=== PATIENT | female | born 1940 | race Caucasian/White ===

== ENCOUNTER → 2019-02-03 | Outpatient (CLI) | payer MEDICARE ==
[~2019-02-03] MED LIST: ASCO500; Colace100 MG PO; FERR325; HYDR1TAB94 PO; MECL12.5 PO; MULVITMIND; XARELTO10 MG PO
== END | disposition home or self-care (01) ==
LOC: PLD 07:21 → LAB SHORT 07:21
DX: L57.0 Actinic keratosis (principal)
CPT/HCPCS: 88173

== ENCOUNTER → 2019-02-09 | Outpatient (CLI) | payer MEDICARE | END | disposition home or self-care (01) | LOC: LAB SHORT 07:03 → PLD 07:03 | DX: C96.9 Malignant neoplasm of lymphoid, hematopoietic and related tissue, unspecified (principal) | CPT/HCPCS: 88173 ==

== ENCOUNTER 2019-03-16 19:48 | Emergency (ER) | payer MEDICARE ==
[~2019-03-16] VITALS: Ht 154.9 cm; Wt 61.2 kg
[2019-03-16 20:29] LABS: BASOPHILS ABSOLUTE AUTO 0.04 K/mm3 (0.00-0.23); BASOPHILS PERCENT AUTO 1 % (0-2); EOSINOPHILS ABSOLUTE AUTO 0.26 K/mm3 (0.00-0.68); EOSINOPHILS PERCENT AUTO 4 % (0-6); Hematocrit 29.9 % (33.0-51.0); Hemoglobin 9.9 g/dL (11.5-16.0); IMMATURE GRAN ABSOLUTE AUTO 0.01 K/mm3 (0.00-0.10); IMMATURE GRAN PERCENT AUTO 0 % (0-1); LYMPHOCYTES ABSOLUTE AUTO 1.49 K/mm3 (0.84-5.20); LYMPHOCYTES PERCENT AUTO 25 % (21-46); MONOCYTES ABSOLUTE AUTO 0.56 K/mm3 (0.16-1.47); MONOCYTES PERCENT AUTO 9 % (4-13); Mean Corpuscular HGB 32.4 pg (26.0-34.0); Mean Corpuscular HGB Conc 33.1 g/dL (31.5-36.5); Mean Corpuscular Volume 98 fL (80-100); Mean Platelet Volume 9.1 fL (9.1-12.4); NEUTROPHILS ABSOLUTE AUTO 3.71 K/mm3 (1.96-9.15); NEUTROPHILS PERCENT AUTO 61 % (41-73); Platelet Count 315 K/mm3 (150-400); RDW Coefficient Variation 12.8 % (11.7-14.2); RDW Standard Deviation 45.9 fL (35.1-46.3); Red Blood Cell Count 3.06 M/mm3 (3.80-5.20); White Blood Cell Count 6.07 K/mm3 (4.00-11.30)
[2019-03-16 20:42] LABS: Alanine Aminotransfer (ALT/SGP 14 U/L (12-78); Albumin, Blood 2.9 g/dL (3.4-5.0); Albumin/Globulin Ratio 0.9 (0.8-1.8); Alk Phos 68 U/L (50-136); Anion Gap 6 mmol/L (6-16); Aspartate Aminotrans (AST/SGOT 19 U/L (12-37); Bilirubin, Total 0.3 mg/dL (0.1-1.0); Blood Urea Nitrogen 10 mg/dL (8-24); CO2, Blood 26 mmol/L (21-32); Chloride, Blood 96 mmol/L (98-108); Creatinine, Blood 0.44 mg/dL (0.40-1.00); Globulin, Blood 3.4 g/dL (2.2-4.0); Glomerular Filtration Rate >60 (60-); Glucose, Blood 104 mg/dL (70-99); Potassium, Blood 4.1 mmol/L (3.5-5.5); Sodium, Blood 128 mmol/L (136-145); Total Protein, Blood 6.3 g/dL (6.4-8.2)
[2019-03-16 20:44] LABS: International Normalized Ratio 1.03; Prothrombin Time Results 10.9 Sec (9.7-11.5)
[2019-03-16] MEDS ORDERED: LISI20 PO (20:58)
== END 2019-03-17 00:02 | disposition short-term general hospital (02) ==
LOC: ER 19:48
PROVIDERS: Emergency Medicine
DX: G45.9 Transient cerebral ischemic attack, unspecified (principal); I10 Essential (primary) hypertension; E78.5 Hyperlipidemia, unspecified; Z79.899 Other long term (current) drug therapy
CPT/HCPCS: 70496; 80053; 85025; 85610; 85730; 93005; 93010; 96361; 96374; 99285-25; J2997; J7030; J7050; Q9967

== ENCOUNTER 2019-03-23 13:23 | Inpatient (IN) | payer MEDICARE ==
[~2019-03-23] VITALS: Ht 160 cm; Wt 47.1 kg
[~2019-03-23 13:23] MED LIST changes: +LISI20 PO
[2019-03-23] MEDS ORDERED: ATOR20 PO (13:34)
[2019-03-23 14:09] LABS: BASOPHILS ABSOLUTE AUTO 0.03 K/mm3 (0.00-0.23); BASOPHILS PERCENT AUTO 1 % (0-2); EOSINOPHILS ABSOLUTE AUTO 0.16 K/mm3 (0.00-0.68); EOSINOPHILS PERCENT AUTO 3 % (0-6); Hematocrit 31.7 % (33.0-51.0); Hemoglobin 11.1 g/dL (11.5-16.0); IMMATURE GRAN ABSOLUTE AUTO 0.03 K/mm3 (0.00-0.10); IMMATURE GRAN PERCENT AUTO 1 % (0-1); LYMPHOCYTES ABSOLUTE AUTO 1.08 K/mm3 (0.84-5.20); LYMPHOCYTES PERCENT AUTO 17 % (21-46); MONOCYTES ABSOLUTE AUTO 0.53 K/mm3 (0.16-1.47); MONOCYTES PERCENT AUTO 8 % (4-13); Mean Corpuscular HGB 32.2 pg (26.0-34.0); Mean Corpuscular Volume 92 fL (80-100); Mean Platelet Volume 8.9 fL (9.1-12.4); NEUTROPHILS PERCENT AUTO 71 % (41-73); Platelet Count 328 K/mm3 (150-400); RDW Coefficient Variation 12.1 % (11.7-14.2); RDW Standard Deviation 41.1 fL (35.1-46.3); Red Blood Cell Count 3.45 M/mm3 (3.80-5.20); White Blood Cell Count 6.33 K/mm3 (4.00-11.30)
[2019-03-23 14:41] LABS: Alanine Aminotransfer (ALT/SGP 22 U/L (12-78); Albumin, Blood 3.2 g/dL (3.4-5.0); Albumin/Globulin Ratio 0.9 (0.8-1.8); Alk Phos 81 U/L (50-136); Anion Gap 8 mmol/L (6-16); Aspartate Aminotrans (AST/SGOT 29 U/L (12-37); Bilirubin, Total 1.1 mg/dL (0.1-1.0); Blood Urea Nitrogen 10 mg/dL (8-24); Bun/Creatinine Ratio 25.3 (12.0-20.0); CO2, Blood 25 mmol/L (21-32); Calcium, Blood 8.3 mg/dL (8.5-10.1); Chloride, Blood 82 mmol/L (98-108); Globulin, Blood 3.7 g/dL (2.2-4.0); Glomerular Filtration Rate >60 (60-); Glucose, Blood 111 mg/dL (70-99); Potassium, Blood 3.2 mmol/L (3.5-5.5); Sodium, Blood 115 mmol/L (136-145); Total Protein, Blood 6.9 g/dL (6.4-8.2)
[2019-03-23] MEDS ORDERED: ASPI81CH PO (15:27)
[2019-03-23] MEDS ORDERED: ATOR40TA PO (15:27)
[2019-03-23] MEDS ORDERED: LIDO700A20 TOP (15:38)
[2019-03-23] MEDS ORDERED: MIRALAX17 GM (15:39)
[2019-03-23] MEDS ORDERED: Multivitamins1 EACH PO (15:39)
[2019-03-23] MEDS ORDERED: TOCO1000 PO (15:40)
[2019-03-23] MEDS ORDERED: ASCO500 PO (15:40)
[2019-03-23] MEDS ORDERED: ERGO400 PO (15:40)
--- NOTE | 2019-03-23 18:25 | NUR ---
SHIFT SUMMARY ASSUMED CARE OF PT AT APPROXIMATELY 1645. PT ALERT AND ORIENTED. VS STABLE. O2 SATS >90% ON RA. PT DENIES ANY PAIN. SOME REDNESS NOTED TO COCCYX. RIGHT SIDED WEAKNESS FROM RECENT STROKE. NS INFUSING PER ORDERS. PT DENIES ANY NAUSEA. WILL CONTINUE TO MONITOR AND REPORT TO ONCOMING RN. CALL LIGHT IN REACH.
[2019-03-23] MEDS ORDERED: FERROUS GLUCONATE PO (21:47)
[2019-03-23] MEDS ORDERED: SODCHL1 PO (21:50)
--- NOTE | 2019-03-24 02:09 | NUR ---
ASSUMED CARE OF PATIENT AT APPROXIMATELY 1900 FROM RASHARD Rogel RN. CHARISMA RN GIVING PATIENT MEDICATION; PATIENT REPORTS SHE TAKES MEDICATIONS CRUSHED IN APPLESAUCE AND DRINKS MOST FOODS THROUGH STRAWS. PATIENT REPORTS WHEN SHE GETS SODIUM PILL AT [facility] SHE THROWS UP AFTERWARDS. TOLERATED MED PASS WELL; NO S/S OF ASPIRATION NOTED. PATIENT DENIES PAIN; SOME NUMBNESS IN RIGHT SIDE; RECENT CVA AND D/C FROM [facility] TO [facility]; RIGHT SIDED WEAKNESS. PATIENT ALERT AND ORIENTED TO SELF, AND LOCATION. PATIENT UNABLE TO STATE MEDICATIONS; MED REC DONE WITH INFORMATION SENT OVER FROM [facility]. PATIENT DENIES TINGLING AND DIZZINESS. NAUSEA REPORTED DURING SHIFT CHANGE; BLOOD TESTER FOWL MEDICATED PER EMAR. PATIENT USES BEDPAN. IVF INFUSING PER ORDERS. CALLED KELLY NORIEGA AT APPROXIMATELY 2200 TO REPORT PATIENT REGULAR DIET AND REPORT OF SWALLOWING DIFFICULTIES; REQUESTED ST EVAL AND BP MEDICATION FOR SBP ABOVE 160; ORDERS RECIEVED FOR Q6 BP MEDICATION. PATIENT CURRENTLY SLEEPING IN BED; CALL LIGHT IN REACH; BED IN LOWEST POSISTION; BED ALARM ON; WILL CONTINUE TO MONITOR AND ASSESS UNTIL END OF SHIFT.
[2019-03-24 04:55] LABS: Anion Gap 7 mmol/L (6-16); Blood Urea Nitrogen 7 mg/dL (8-24); Bun/Creatinine Ratio 18.5 (12.0-20.0); CO2, Blood 24 mmol/L (21-32); Calcium, Blood 7.6 mg/dL (8.5-10.1); Chloride, Blood 90 mmol/L (98-108); Creatinine, Blood 0.38 mg/dL (0.40-1.00); Glomerular Filtration Rate >60 (60-); Glucose, Blood 106 mg/dL (70-99); Potassium, Blood 3.2 mmol/L (3.5-5.5); Sodium, Blood 121 mmol/L (136-145)
--- NOTE | 2019-03-24 06:25 | NUR ---
PATIENT SLEPT ABOUT NINE HOURS; TURNED FREQUENTLY; PATIENT HAD COMPLAINED OF CONSTIPATION SHORTLY AFTER SHIFT CHANGE; MEDICATED PER EMAR; BM THIS AM; USES BEDPAN. VSS. WILL CONTINUE TO MONITOR AND ASSESS UNTIL END OF SHIFT.
--- NOTE | 2019-03-24 19:00 | NUR ---
SHIFT SUMMARY- PT DENIES PAIN. DENIES N/V. DENIES SOB. RESP E/U ON RA. NSR AT 69 PER PCU DATA PROCESSING SYSTEMS CONSULTANT. SODIUM 121 AND POTASSIUM 3.2 TODAY. MEDS GIVEN PER EMAR. TURNS Q2H. PT TO TRANSFER TO ROOM 325 ON MEDICAL FLOOR WHEN ROOM IS CLEAN. NO OTHER SIGNIFICANT CHANGES THIS SHIFT.
--- NOTE | 2019-03-24 22:06 | NUR ---
REPORT TO [facility], FOR PT TRANSFER
--- NOTE | 2019-03-24 22:33 | NUR ---
PT TRANSFERRED TO ROOM 325 AT THIS TIME.
[2019-03-25 05:55] LABS: Anion Gap 8 mmol/L (6-16); Blood Urea Nitrogen 6 mg/dL (8-24); Bun/Creatinine Ratio 15.6 (12.0-20.0); CO2, Blood 23 mmol/L (21-32); Calcium, Blood 7.4 mg/dL (8.5-10.1); Chloride, Blood 94 mmol/L (98-108); Creatinine, Blood 0.38 mg/dL (0.40-1.00); Glomerular Filtration Rate >60 (60-); Glucose, Blood 92 mg/dL (70-99); Magnesium, Blood 1.6 mg/dL (1.6-2.4); Potassium, Blood 4.1 mmol/L (3.5-5.5); Sodium, Blood 125 mmol/L (136-145)
--- NOTE | 2019-03-25 06:19 | NUR ---
SHIFT SUMMARY PT TRANSFERRED FROM PCU TO ROOM 25 AT APPROX 2300. C/O PAIN IN NECK AND MEDICATED PER EMAR. A/O AND INCONT AT TIMES. SHE WAS ABLE TO SLEEP ON AND OFF T/O NIGHT. CALL LIGHT IN REACH.
--- NOTE | 2019-03-25 17:46 | NUR ---
SHIFT SUMMARY. A&OX4, R SIDED WEAKNESS R/T RECENT CVA, BEDREST, PT IS AWARE OF LIMIATIONS. SOME SLURRED SPEECH SECONDARY HX OF ORAL SURGERIES. PT REPORTS CHRONIC NECK PAIN THAT HAS BEEN MANAGED WELL WITH LIDOCAINE PATCH. NO SOB, N/V. CONTINUES WITH IV FLUIDS WITH KCL AND ORAL SODIUM SUPPLEMENTATION. AT BEDSIDE MOST OF SHIFT. NO NEW CHANGES OR CONCERNS.
[2019-03-26 05:23] LABS: Anion Gap 7 mmol/L (6-16); Blood Urea Nitrogen 11 mg/dL (8-24); Bun/Creatinine Ratio 28.3 (12.0-20.0); CO2, Blood 23 mmol/L (21-32); Calcium, Blood 7.6 mg/dL (8.5-10.1); Chloride, Blood 97 mmol/L (98-108); Creatinine, Blood 0.39 mg/dL (0.40-1.00); Glomerular Filtration Rate >60 (60-); Glucose, Blood 94 mg/dL (70-99); Magnesium, Blood 1.5 mg/dL (1.6-2.4); Potassium, Blood 4.9 mmol/L (3.5-5.5); Sodium, Blood 127 mmol/L (136-145)
--- NOTE | 2019-03-26 06:09 | NUR ---
SHIFT SUMMARY PT A/O. C/O PAIN IN NECK AND MEDICATED C TYLENOL. SHE WAS ABLE TO GET TO SLEEP AFTER THAT. INCONT OF URINE. REPOSITIONED C PILLOWS. CALL LIGHT IN REACH.
--- NOTE | 2019-03-26 16:49 | NUR ---
SHIFT SUMMARY. A&OX3, COGNITION APPEARS IMPROVED FROM YESTERDAY. BLOOD SODIUM TRENDING UP. PT DENIES PAIN, SOB, N/V.IV FLUIDS STOPPED. POOR APPETITE, ALTHOUGH PT PUTS GOOD EFFORT INTO EATING. NO NEW CHANGES OR CONCERNS.
[2019-03-27 06:05] LABS: Anion Gap 5 mmol/L (6-16); Blood Urea Nitrogen 15 mg/dL (8-24); Bun/Creatinine Ratio 38.2 (12.0-20.0); CO2, Blood 25 mmol/L (21-32); Chloride, Blood 95 mmol/L (98-108); Creatinine, Blood 0.39 mg/dL (0.40-1.00); Glomerular Filtration Rate >60 (60-); Glucose, Blood 104 mg/dL (70-99); Magnesium, Blood 1.7 mg/dL (1.6-2.4); Potassium, Blood 4.3 mmol/L (3.5-5.5); Sodium, Blood 125 mmol/L (136-145)
--- NOTE | 2019-03-27 06:05 | NUR ---
SHIFT SUMMARY A/O. NO C/O PAIN. INCONT OF URINE. SHE WAS ABLE TO SLEEP T/O NIGHT. CALL LIGHT IN REACH.
[2019-03-27] MEDS ORDERED: ACET325 PO (16:41)
[2019-03-27] MEDS ORDERED: IRON236 MG PO (16:42)
--- NOTE | 2019-03-27 17:30 | NUR ---
DISCHARGED TO [facility] AT 1710. REPORT CALLED TO SHANNA. RECEIVED A SCRIPT FOR HYDROCODONE JUST PRIOR TO DISCHARGE THAT NURSE AT [facility] REPORTS SHE GOT. IN ROOM WITH RIDE GOT HERE. 2 PERSON STAND PIVOT TRANSFER TO W/C. INCONTINENT OF URINE JUST PRIOR TO LEAVING. TO [facility] VIA W/C. DISCHARGE INFO FAXED TO [facility] PER THEIR REQUEST.
== END 2019-03-27 17:34 | DRG 641 ==
LOC: ER 13:23 → PCU 14:51 → MEDS 03-24 22:12 → ENPENDDIS 03-27 15:06 → MEDS 03-27 17:34
PROVIDERS: Emergency Medicine; ADMIT Hospitalist
DX: E87.1 Hypo-osmolality and hyponatremia (principal); I69.351 Hemiplegia and hemiparesis following cerebral infarction affecting right dominant side; Z85.819 Personal history of malignant neoplasm of unspecified site of lip, oral cavity, and pharynx; I10 Essential (primary) hypertension; E78.5 Hyperlipidemia, unspecified; E83.42 Hypomagnesemia; D64.9 Anemia, unspecified; Z79.82 Long term (current) use of aspirin
CPT/HCPCS: 36415; 80048; 80053; 82947; 83735; 85025; 93005; 93010; 96360; 96361; 97110; 97162; 97167; 97530; 99284-25; A9270-GY; J1650; J2405; J3480; J7030

== ENCOUNTER → 2019-04-07 | Outpatient (CLI) | payer MEDICARE ==
[~2019-04-07] MED LIST changes: +ACET325 PO; +ASCO500 PO; +ASPI81CH PO; +ATOR20 PO; +ATOR40TA PO; +ERGO400 PO; +FERROUS GLUCONATE PO; +IRON236 MG PO; +LIDO700A20 TOP; +MIRALAX17 GM; +Multivitamins1 EACH PO; +SODCHL1 PO; +TOCO1000 PO
[2019-04-07 12:15] LABS: Alanine Aminotransfer (ALT/SGP 18 U/L (12-78); Albumin, Blood 3.1 g/dL (3.4-5.0); Alk Phos 91 U/L (50-136); Anion Gap 9 mmol/L (6-16); Aspartate Aminotrans (AST/SGOT 19 U/L (12-37); Bilirubin, Total 0.4 mg/dL (0.1-1.0); Blood Urea Nitrogen 10 mg/dL (8-24); Bun/Creatinine Ratio 23.4 (12.0-20.0); CO2, Blood 25 mmol/L (21-32); Calcium, Blood 8.1 mg/dL (8.5-10.1); Chloride, Blood 90 mmol/L (98-108); Creatinine, Blood 0.43 mg/dL (0.40-1.00); Glomerular Filtration Rate >60 (60-); Glucose, Blood 121 mg/dL (70-99); Potassium, Blood 3.9 mmol/L (3.5-5.5); Sodium, Blood 124 mmol/L (136-145); Total Protein, Blood 6.1 g/dL (6.4-8.2)
== END | disposition home or self-care (01) ==
LOC: LAB 11:49 → LAB SHORT 11:49
PROVIDERS: Internal Medicine Hematology & Oncology
DX: E87.1 Hypo-osmolality and hyponatremia (principal)
CPT/HCPCS: 80053

== ENCOUNTER → 2019-04-28 | Outpatient (CLI) | payer MEDICARE ==
[2019-04-28 11:12] LABS: Alanine Aminotransfer (ALT/SGP 20 U/L (12-78); Albumin, Blood 3.1 g/dL (3.4-5.0); Alk Phos 82 U/L (50-136); Anion Gap 7 mmol/L (6-16); Aspartate Aminotrans (AST/SGOT 18 U/L (12-37); Bilirubin, Total 0.6 mg/dL (0.1-1.0); Blood Urea Nitrogen 12 mg/dL (8-24); Bun/Creatinine Ratio 24.8 (12.0-20.0); CO2, Blood 28 mmol/L (21-32); Calcium, Blood 8.5 mg/dL (8.5-10.1); Chloride, Blood 95 mmol/L (98-108); Creatinine, Blood 0.48 mg/dL (0.40-1.00); Glomerular Filtration Rate >60 (60-); Glucose, Blood 98 mg/dL (70-99); Potassium, Blood 3.6 mmol/L (3.5-5.5); Sodium, Blood 130 mmol/L (136-145); Total Protein, Blood 6.1 g/dL (6.4-8.2)
== END | disposition home or self-care (01) ==
LOC: LAB SHORT 10:48 → LAB 10:48
PROVIDERS: Internal Medicine Hematology & Oncology
DX: C11.2 Malignant neoplasm of lateral wall of nasopharynx (principal)
CPT/HCPCS: 80053

== ENCOUNTER → 2019-06-08 | Outpatient (CLI) | payer MEDICARE ==
[2019-06-08 10:41] LABS: BASOPHILS ABSOLUTE AUTO 0.02 K/mm3 (0.00-0.23); BASOPHILS PERCENT AUTO 1 % (0-2); EOSINOPHILS ABSOLUTE AUTO 0.17 K/mm3 (0.00-0.68); EOSINOPHILS PERCENT AUTO 4 % (0-6); Hematocrit 29.3 % (33.0-51.0); IMMATURE GRAN ABSOLUTE AUTO 0.01 K/mm3 (0.00-0.10); IMMATURE GRAN PERCENT AUTO 0 % (0-1); LYMPHOCYTES ABSOLUTE AUTO 1.06 K/mm3 (0.84-5.20); LYMPHOCYTES PERCENT AUTO 25 % (21-46); MONOCYTES ABSOLUTE AUTO 0.34 K/mm3 (0.16-1.47); MONOCYTES PERCENT AUTO 8 % (4-13); Mean Corpuscular HGB 31.9 pg (26.0-34.0); Mean Corpuscular HGB Conc 34.1 g/dL (31.5-36.5); Mean Corpuscular Volume 94 fL (80-100); Mean Platelet Volume 8.9 fL (9.1-12.4); NEUTROPHILS ABSOLUTE AUTO 2.65 K/mm3 (1.96-9.15); NEUTROPHILS PERCENT AUTO 62 % (41-73); Platelet Count 296 K/mm3 (150-400); RDW Coefficient Variation 13.5 % (11.7-14.2); RDW Standard Deviation 46.2 fL (35.1-46.3); Red Blood Cell Count 3.13 M/mm3 (3.80-5.20); White Blood Cell Count 4.25 K/mm3 (4.00-11.30)
== END | disposition home or self-care (01) ==
LOC: LAB 10:31 → LAB SHORT 10:31
PROVIDERS: Internal Medicine Hematology & Oncology
DX: C11.2 Malignant neoplasm of lateral wall of nasopharynx (principal); Z85.810 Personal history of malignant neoplasm of tongue
CPT/HCPCS: 85025

== ENCOUNTER 2019-06-26 09:12 | Emergency (ER) | payer MEDICARE ==
[~2019-06-26] VITALS: Ht 160 cm; Wt 52.2 kg
[2019-06-26 10:54] LABS: BASOPHILS ABSOLUTE AUTO 0.05 K/mm3 (0.00-0.23); BASOPHILS PERCENT AUTO 1 % (0-2); EOSINOPHILS ABSOLUTE AUTO 0.22 K/mm3 (0.00-0.68); EOSINOPHILS PERCENT AUTO 4 % (0-6); Hematocrit 32.4 % (33.0-51.0); Hemoglobin 11.2 g/dL (11.5-16.0); IMMATURE GRAN ABSOLUTE AUTO 0.01 K/mm3 (0.00-0.10); IMMATURE GRAN PERCENT AUTO 0 % (0-1); LYMPHOCYTES ABSOLUTE AUTO 1.32 K/mm3 (0.84-5.20); LYMPHOCYTES PERCENT AUTO 25 % (21-46); MONOCYTES ABSOLUTE AUTO 0.53 K/mm3 (0.16-1.47); MONOCYTES PERCENT AUTO 10 % (4-13); Mean Corpuscular HGB 31.5 pg (26.0-34.0); Mean Corpuscular HGB Conc 34.6 g/dL (31.5-36.5); Mean Corpuscular Volume 91 fL (80-100); Mean Platelet Volume 8.9 fL (9.1-12.4); NEUTROPHILS ABSOLUTE AUTO 3.25 K/mm3 (1.96-9.15); NEUTROPHILS PERCENT AUTO 60 % (41-73); Platelet Count 268 K/mm3 (150-400); RDW Coefficient Variation 13.3 % (11.7-14.2); RDW Standard Deviation 44.8 fL (35.1-46.3); Red Blood Cell Count 3.55 M/mm3 (3.80-5.20); White Blood Cell Count 5.38 K/mm3 (4.00-11.30)
[2019-06-26 11:05] LABS: Alanine Aminotransfer (ALT/SGP 14 U/L (12-78); Albumin, Blood 3.4 g/dL (3.4-5.0); Alk Phos 78 U/L (50-136); Anion Gap 7 mmol/L (6-16); Aspartate Aminotrans (AST/SGOT 19 U/L (12-37); Bilirubin, Total 0.3 mg/dL (0.1-1.0); Blood Urea Nitrogen 8 mg/dL (8-24); Bun/Creatinine Ratio 14.4 (12.0-20.0); CO2, Blood 27 mmol/L (21-32); Calcium, Blood 8.3 mg/dL (8.5-10.1); Chloride, Blood 89 mmol/L (98-108); Creatinine, Blood 0.56 mg/dL (0.40-1.00); Globulin, Blood 3.4 g/dL (2.2-4.0); Glomerular Filtration Rate >60 (60-); Glucose, Blood 110 mg/dL (70-99); Potassium, Blood 3.5 mmol/L (3.5-5.5); Sodium, Blood 123 mmol/L (136-145); Total Protein, Blood 6.8 g/dL (6.4-8.2)
== END 2019-06-26 12:01 | disposition home or self-care (01) ==
LOC: ER 09:12
PROVIDERS: Emergency Medicine
DX: E87.1 Hypo-osmolality and hyponatremia (principal); Z88.0 Allergy status to penicillin; Z88.5 Allergy status to narcotic agent; Z88.8 Allergy status to other drugs, medicaments and biological substances; Z79.899 Other long term (current) drug therapy; Z79.82 Long term (current) use of aspirin; I10 Essential (primary) hypertension; Z86.73 Personal history of transient ischemic attack (TIA), and cerebral infarction without residual deficits; E78.5 Hyperlipidemia, unspecified; Z85.818 Personal history of malignant neoplasm of other sites of lip, oral cavity, and pharynx
CPT/HCPCS: 36415; 80053; 85025; 99283

== ENCOUNTER → 2019-08-09 | Outpatient (CLI) | payer MEDICARE ==
[2019-08-09 15:44] LABS: Alanine Aminotransfer (ALT/SGP 16 U/L (12-78); Albumin, Blood 3.4 g/dL (3.4-5.0); Albumin/Globulin Ratio 1.1 (0.8-1.8); Alk Phos 79 U/L (50-136); Anion Gap 7 mmol/L (6-16); Aspartate Aminotrans (AST/SGOT 21 U/L (12-37); Bilirubin, Total 0.4 mg/dL (0.1-1.0); Blood Urea Nitrogen 7 mg/dL (8-24); Bun/Creatinine Ratio 15.3 (12.0-20.0); CO2, Blood 27 mmol/L (21-32); Calcium, Blood 8.4 mg/dL (8.5-10.1); Chloride, Blood 93 mmol/L (98-108); Creatinine, Blood 0.46 mg/dL (0.40-1.00); Glomerular Filtration Rate >60 (60-); Glucose, Blood 81 mg/dL (70-99); Sodium, Blood 127 mmol/L (136-145); Total Protein, Blood 6.4 g/dL (6.4-8.2)
== END | disposition home or self-care (01) ==
LOC: LAB 12:20 → LAB SHORT 12:20
PROVIDERS: Internal Medicine Hematology & Oncology
DX: C11.2 Malignant neoplasm of lateral wall of nasopharynx (principal)
CPT/HCPCS: 80053

== ENCOUNTER → 2019-10-26 | Outpatient (CLI) | payer MEDICARE ==
[~2019-10-26] MED LIST changes: -ASPI81CH PO; +AZIT500 PO; +Aspirin EC81 MG PO; +BISA5EC PO; +COLACE100 MG PO; +Fergon240 M1 PO; +IMMUNOTHERAPY; -IRON236 MG PO; -MIRALAX17 GM; +MIRALAX17 GM PO; +MULTI VITAMIN1 EACH PO; +MUPIROCIN15 GM TOP; +Macrodantin100 MG PO; -Multivitamins1 EACH PO; +TOBRADEX ST EYE5 ML BOTHEYES; +Zantac150 MG PO
[2019-10-26 15:23] LABS: Alanine Aminotransfer (ALT/SGP 27 U/L (12-78); Albumin, Blood 3.6 g/dL (3.4-5.0); Albumin/Globulin Ratio 0.9 (0.8-1.8); Alk Phos 350 U/L (50-136); Anion Gap 10 mmol/L (6-16); Aspartate Aminotrans (AST/SGOT 28 U/L (12-37); Bilirubin, Direct 0.4 mg/dL (0.0-0.3); Bilirubin, Indirect 0.4 mg/dL (0.1-0.7); Bilirubin, Total 0.8 mg/dL (0.1-1.0); Blood Urea Nitrogen 6 mg/dL (8-24); Bun/Creatinine Ratio 13.5 (12.0-20.0); CO2, Blood 26 mmol/L (21-32); Calcium, Blood 8.6 mg/dL (8.5-10.1); Chloride, Blood 93 mmol/L (98-108); Creatinine, Blood 0.44 mg/dL (0.40-1.00); Globulin, Blood 3.9 g/dL (2.2-4.0); Glomerular Filtration Rate >60 (60-); Glucose, Blood 80 mg/dL (70-99); Potassium, Blood 3.7 mmol/L (3.5-5.5); Sodium, Blood 129 mmol/L (136-145); Total Protein, Blood 7.5 g/dL (6.4-8.2)
== END | disposition home or self-care (01) ==
LOC: LAB SHORT 13:05 → LAB 13:05
PROVIDERS: Internal Medicine Hematology & Oncology
DX: C11.2 Malignant neoplasm of lateral wall of nasopharynx (principal)
CPT/HCPCS: 80053; 82248

== ENCOUNTER → 2019-11-23 | Outpatient (CLI) | payer MEDICARE | END | disposition home or self-care (01) | LOC: LAB SHORT 17:14 → LAB 17:14 | DX: R30.0 Dysuria (principal); R30.9 Painful micturition, unspecified | CPT/HCPCS: 87077; 87086; 87186 ==

== ENCOUNTER 2019-11-28 09:45 | Day surgery (SDC) | payer MEDICARE ==
[~2019-11-28 09:45] MED LIST changes: -AZIT500 PO; -BISA5EC PO; -COLACE100 MG PO; -MUPIROCIN15 GM TOP; -Macrodantin100 MG PO; -TOBRADEX ST EYE5 ML BOTHEYES
--- NOTE | 2019-11-28 10:25 | NUR ---
History, Chart, Medications and Allergies reviewed before start of procedure. Patient confirms NPO status and agrees with scheduled surgery. Patient States Post-Procedure ride home has been arranged with her , who is at bedside.
--- NOTE | 2019-11-28 10:29 | NUR ---
DR MISTRY CANCELLED SURGERY DUE TO SAFETY CONCERNS.
--- NOTE | 2019-11-28 10:49 | NUR ---
PATIENT TRANSPORTED OUT OF [facility] VIA PERSONAL W/C ACCOMPANIED BY HER . DR MISTRY'S OFFICE CONTACT INFORMATION GIVEN TO PATIENT FOR FOLLOW UP AFTER TODAY'S CANCELLATION. PATIENT AGREES TO CALL DR MISTRY'S OFFICE IF SHE DOES NOT HEAR FROM HIM BY THE END OF THE DAY.
[2019-12-12] MEDS ORDERED: MUPIROCIN15 GM TOP (07:28)
[2019-12-12] MEDS ORDERED: Macrodantin100 MG PO (07:30)
[2019-12-12] MEDS ORDERED: TOBRADEX ST EYE5 ML BOTHEYES (07:31)
[2019-12-12] MEDS ORDERED: BISA5EC PO (07:32)
[2019-12-12] MEDS ORDERED: COLACE100 MG PO (07:33)
== END 2019-11-28 22:43 | disposition home or self-care (01) ==
LOC: ORSCMMR 09:45 → ORD 11:00 → ORSCMMR 11:00
DX: C11.9 Malignant neoplasm of nasopharynx, unspecified (principal); Z53.9 Procedure and treatment not carried out, unspecified reason
CPT/HCPCS: J7120

== ENCOUNTER 2019-12-12 09:43 | Day surgery (SDC) | payer MEDICARE ==
[~2019-12-12] VITALS: Ht 162.6 cm; Wt 47.9 kg
[~2019-12-12 09:43] MED LIST changes: +BISA5EC PO; +COLACE100 MG PO; +MUPIROCIN15 GM TOP; +Macrodantin100 MG PO; +TOBRADEX ST EYE5 ML BOTHEYES
[2019-12-12] MEDS ORDERED: AZIT500 PO (10:24)
--- NOTE | 2019-12-12 12:55 | NUR ---
1255 Vanco IV drip started.
--- NOTE | 2019-12-12 16:13 | NUR ---
PT ASSISTED TO DRESS. PT AOX4. DENIES ANY PAIN. NEW IMPLANTED MEDIPORT SITE IS COVERED WITH STERI STRIPS AND TEGADERM. LITTLE OOZING NOTED. IV DCD WITH CATH INTACT. PT AND SPOUSE STATES UNDERSTANDING OF WOUNDS SITE CARE INSTRUCTIONS AND DISCHARGE INSTRUCTIONS. VSS. BOTH PT AND SPOUSE DENY ANY QUESTIONS OR CONCERNS. PT DCD IN OWN WHEELCHAIR WITH
== END 2019-12-12 16:00 | disposition home or self-care (01) ==
LOC: MHTC 09:43
DX: C11.2 Malignant neoplasm of lateral wall of nasopharynx (principal); E78.5 Hyperlipidemia, unspecified; Z88.0 Allergy status to penicillin; Z88.5 Allergy status to narcotic agent; Z88.8 Allergy status to other drugs, medicaments and biological substances; Z79.899 Other long term (current) drug therapy
CPT/HCPCS: 36561; 76937; 99152; 99153; C1769; C1788; J1642; J1644; J2250; J3010; J3370

== ENCOUNTER → 2019-12-22 | Outpatient (CLI) | payer MEDICARE ==
[~2019-12-22] MED LIST changes: +ASPI81CH PO; +ATOR10 PO; +AZIT500 PO; +DULCOLAX STOOL100 MG PO; +METO25ER PO
== END | disposition home or self-care (01) ==
LOC: LAB 10:55 → LAB SHORT 10:55
DX: T14.8XXA Other injury of unspecified body region, initial encounter (principal); R22.1 Localized swelling, mass and lump, neck
CPT/HCPCS: 87070; 87205

== ENCOUNTER → 2020-01-17 | Outpatient (CLI) | payer MEDICARE ==
[2020-01-17 11:13] LABS: Alanine Aminotransfer (ALT/SGP 13 U/L (12-78); Albumin, Blood 2.5 g/dL (3.4-5.0); Albumin/Globulin Ratio 0.8 (0.8-1.8); Alk Phos 120 U/L (50-136); Anion Gap 3 mmol/L (6-16); Aspartate Aminotrans (AST/SGOT 17 U/L (12-37); Bilirubin, Total 0.5 mg/dL (0.1-1.0); Blood Urea Nitrogen 7 mg/dL (8-24); Bun/Creatinine Ratio 17.9 (12.0-20.0); CO2, Blood 31 mmol/L (21-32); Calcium, Blood 7.4 mg/dL (8.5-10.1); Chloride, Blood 103 mmol/L (98-108); Creatinine, Blood 0.39 mg/dL (0.40-1.00); Glomerular Filtration Rate >60 (60-); Glucose, Blood 73 mg/dL (70-99); Potassium, Blood 3.3 mmol/L (3.5-5.5); Sodium, Blood 137 mmol/L (136-145); Total Protein, Blood 5.5 g/dL (6.4-8.2)
== END ==
LOC: LAB SHORT 10:49 → LAB 10:49
PROVIDERS: Internal Medicine Hematology & Oncology
DX: E86.9 Volume depletion, unspecified (principal); C11.2 Malignant neoplasm of lateral wall of nasopharynx
CPT/HCPCS: 80053

== ENCOUNTER 2020-02-22 17:50 | Observation (INO) | payer MEDICARE, OTHER ==
[~2020-02-22] VITALS: Ht 162.6 cm; Wt 47.8 kg
[~2020-02-22 17:50] MED LIST changes: -ASPI81CH PO; -ATOR10 PO; -DULCOLAX STOOL100 MG PO; -METO25ER PO
[2020-02-22 18:34] LABS: BASOPHILS ABSOLUTE AUTO 0.03 K/mm3 (0.00-0.23); BASOPHILS PERCENT AUTO 0 % (0-2); EOSINOPHILS ABSOLUTE AUTO 0.01 K/mm3 (0.00-0.68); EOSINOPHILS PERCENT AUTO 0 % (0-6); Hematocrit 34.3 % (33.0-51.0); Hemoglobin 11.6 g/dL (11.5-16.0); IMMATURE GRAN ABSOLUTE AUTO 0.02 K/mm3 (0.00-0.10); IMMATURE GRAN PERCENT AUTO 0 % (0-1); LYMPHOCYTES ABSOLUTE AUTO 0.62 K/mm3 (0.84-5.20); LYMPHOCYTES PERCENT AUTO 8 % (21-46); MONOCYTES ABSOLUTE AUTO 0.34 K/mm3 (0.16-1.47); MONOCYTES PERCENT AUTO 4 % (4-13); Mean Corpuscular HGB 32.4 pg (26.0-34.0); Mean Corpuscular HGB Conc 33.8 g/dL (31.5-36.5); Mean Corpuscular Volume 96 fL (80-100); Mean Platelet Volume 9.4 fL (9.1-12.4); NEUTROPHILS PERCENT AUTO 87 % (41-73); Platelet Count 202 K/mm3 (150-400); RDW Coefficient Variation 13.3 % (11.7-14.2); RDW Standard Deviation 47.5 fL (35.1-46.3); Red Blood Cell Count 3.58 M/mm3 (3.80-5.20); White Blood Cell Count 7.82 K/mm3 (4.00-11.30)
[2020-02-22 19:11] LABS: Source, Urine Clean Catch
[2020-02-22 19:13] LABS: Bilirubin, Urine Neg (Neg); Blood, Urine 1+ (Neg); Glucose Qualitative, Urine Neg (Neg); Ketones, Urine 1+ (Neg); Leukocyte Esterase, Urine Neg (Neg); Nitrite, Urine Neg (Neg); Protein, Urine Neg (Neg); Urobilinogen, Urine NORM (Normal)
[2020-02-22 19:22] LABS: Appearance, Urine Clear (Clear); Color, Urine Yellow (P-Yellow)
[2020-02-22 19:28] LABS: Alanine Aminotransfer (ALT/SGP 25 U/L (12-78); Albumin, Blood 2.7 g/dL (3.4-5.0); Albumin/Globulin Ratio 0.8 (0.8-1.8); Alk Phos 89 U/L (50-136); Anion Gap 7 mmol/L (6-16); Aspartate Aminotrans (AST/SGOT 66 U/L (12-37); Bilirubin, Total 0.8 mg/dL (0.1-1.0); Blood Urea Nitrogen 6 mg/dL (8-24); Bun/Creatinine Ratio 19.4 (12.0-20.0); CO2, Blood 25 mmol/L (21-32); Calcium, Blood 7.2 mg/dL (8.5-10.1); Chloride, Blood 104 mmol/L (98-108); Creatinine, Blood 0.31 mg/dL (0.40-1.00); Globulin, Blood 3.5 g/dL (2.2-4.0); Glomerular Filtration Rate >60 (60-); Glucose, Blood 108 mg/dL (70-99); Sodium, Blood 136 mmol/L (136-145); Total Protein, Blood 6.2 g/dL (6.4-8.2)
[2020-02-22 19:34] LABS: Amorphous Mod (0-Heavy); Bacteria Few /hpf; Red Blood Cells, Urine 0-2 /hpf (0-2); Squamous Epithelial Cells Few /hpf (Few); White Blood Cells, Urine 0-2 /hpf (0-5)
[2020-02-22] MEDS ORDERED: Aspir 8181 MG PO (20:14)
[2020-02-22] MEDS ORDERED: ATOR20 PO (20:15)
[2020-02-22] MEDS ORDERED: METO25ER PO (20:16)
[2020-02-22] MEDS ORDERED: DOCU LIQUI50 MG/5 ML PO (20:16)
[2020-02-22 20:18] LABS: International Normalized Ratio 2.28; Prothrombin Time Results 23.3 Sec (9.7-11.5)
[2020-02-22 22:24] LABS: Adenovirus Not Detected (NOT DETECT); Bordetella pertussis Not Detected (NOT DETECT); Chlamydophila pneumoniae Not Detected (NOT DETECT); Coronavirus 229E Not Detected (NOT DETECT); Coronavirus HKU1 Not Detected (NOT DETECT); Coronavirus NL63 Not Detected (NOT DETECT); Coronavirus OC43 Not Detected (NOT DETECT); Human Metapneumovirus Not Detected (NOT DETECT); Human Rhinovirus/Enterovirus Not Detected (NOT DETECT); Influenza A/2009-H1 Not Detected (NOT DETECT); Influenza A/H1 Not Detected (NOT DETECT); Influenza A/H3 Not Detected (NOT DETECT); Influenza B Not Detected (NOT DETECT); Mycoplasma pneumoniae Not Detected (NOT DETECT); Parainfluenza Virus 1 Not Detected (NOT DETECT); Parainfluenza Virus 2 Not Detected (NOT DETECT); Parainfluenza Virus 3 Not Detected (NOT DETECT); Parainfluenza Virus 4 Not Detected (NOT DETECT); Respiratory Syncytial Virus Not Detected (NOT DETECT)
[2020-02-23 02:23] LABS: Hematocrit 33.8 % (33.0-51.0); Hemoglobin 11.3 g/dL (11.5-16.0); Mean Corpuscular HGB 32.2 pg (26.0-34.0); Mean Corpuscular HGB Conc 33.4 g/dL (31.5-36.5); Mean Corpuscular Volume 96 fL (80-100); Mean Platelet Volume 8.9 fL (9.1-12.4); Platelet Count 196 K/mm3 (150-400); RDW Coefficient Variation 13.3 % (11.7-14.2); RDW Standard Deviation 47.8 fL (35.1-46.3); Red Blood Cell Count 3.51 M/mm3 (3.80-5.20); White Blood Cell Count 5.57 K/mm3 (4.00-11.30)
[2020-02-23 02:38] LABS: International Normalized Ratio 1.28
[2020-02-23 02:41] LABS: Prothrombin Time Results 13.5 Sec (9.7-11.5)
[2020-02-23 02:46] LABS: Alanine Aminotransfer (ALT/SGP 33 U/L (12-78); Albumin, Blood 2.6 g/dL (3.4-5.0); Albumin/Globulin Ratio 0.7 (0.8-1.8); Alk Phos 97 U/L (50-136); Anion Gap 4 mmol/L (6-16); Aspartate Aminotrans (AST/SGOT 79 U/L (12-37); Bilirubin, Total 0.6 mg/dL (0.1-1.0); Blood Urea Nitrogen 9 mg/dL (8-24); CO2, Blood 28 mmol/L (21-32); CPK Creatine Kinase 116 U/L (26-193); Calcium, Blood 7.7 mg/dL (8.5-10.1); Chloride, Blood 103 mmol/L (98-108); Globulin, Blood 3.5 g/dL (2.2-4.0); Glomerular Filtration Rate >60 (60-); Glucose, Blood 101 mg/dL (70-99); Potassium, Blood 4.7 mmol/L (3.5-5.5); Sodium, Blood 135 mmol/L (136-145); Total Protein, Blood 6.1 g/dL (6.4-8.2)
--- NOTE | 2020-02-23 05:44 | NUR ---
SHIFT SUMMARY PT HAS BEEN RESTING QUIETLY SINCE ADMISSION TO THE FLOOR WITH NO PROBLEMS. SHE IS A&O X4, ON RA, VSS, FEVER NOTED UPON ADMISSION. PT DENIES SOB/CP. PT IS ON ISOLATION FOR R/O COVID 19, SAMPLES WERE TAKEN IN THE ER SENT. RESP PANEL IS NEG. PT HAS BEEN NPO OTHER THAN PILLS THAT WERE CRUSHED AND GIVEN W/PUDDING, PT STATES SHE HAS A HARD TIME SWALLOWING THEM DUE TO HER CANCER. NS INFUSING @ 75 ML/HR. CALL LIGHT IN REACH, RESP UNLABORED, WCTM & REPORT TO DAY RN.
--- NOTE | 2020-02-23 09:42 | NUR ---
PT LAYING IN BED AWAKE, A/OX3, BUT WAS REPORTED THAT SHE IS NOT UNDERSTANDING HER CODE STATUS, AND MAY NEED SOME HELP FROM HER SPOUCE REGARDING THAT, AND LUNGS ARE CLEAR A BIT DIM IN BASES, RESP EVEN AND UNLABORED, SHE IS CURRENTLY ON R/A, NO COUGH NOTED, HRR, TELE IN PLACE RUNNING SR PER MONITOR, SEE STRIP, NO EDEMA NOTED, ppp+1, CAP REFILL<3SEC, VS STABLE, AFEBRILE, IV SITE IS CLEAR AND PATENT, BTX4, ABD FLAT SOFT NONTENDER, INCONT OF URINE, ATTENDS IN PLACE, SKIN VERY DRY, BUT INTACT, MAEW, WEAK AND FRAIL, TOVA, CALL LIGHT IN REACH.
[2020-02-23 11:20] LABS: Troponin I 6.36 ng/mL (0.000-0.040)
[2020-02-23 11:39] LABS: Creatine Kinase MB Index 10.3 (0.0-4.0)
--- NOTE | 2020-02-23 13:00 | NUR ---
PT UP TO CHAIR WITH PT. SHE IS DOING WELL, LIKES TO VISIT WHEN NURSE IN ROOM. NO COMPLAINTS, DENIES ANY CHEST PAIN. CALL LIGHT IN REACH.
--- NOTE | 2020-02-23 14:20 | NUR ---
[facility] Care initial contact: CORRECT ph # for , CHANCE [phone] Pt is in enhanced respiratory isolation for ruling out of covid19. Pt's RN, and report pt is confused at this time. She did not remember coming to the hospital by ambulance yesterday. Case conferenced with pt's RN prior to my call to and with after my long conversation with pt's . We received a palliative care consult order for advanced care planning and s/s management. Pt is currently experiencing an evolving SD. Due to pt's stage IV recurrent nasopharangeal cancer, malnutrition, frail/deconditioned status, conservative treatment for SD agreed upon. Pt and had been discussing hospice prior to this hospital stay after oncologist did not recommend further tx of cancer. Pt saw her new PCP, Dr Blandon once prior to admission and he had ordered HH. Code status was addressed with . requests that we continue to treat pt's s/s and SD with medications but he does not want his to receive resuscitation efforts of any kind. POLST was completed per his instructions with DNR and limited interventions noted. Chance wants his to return home with hospice services when she is medically ready for d/c. He has been doing a one person transfer from bed or chair to w/c and toilet and states he can manage her care if she is able to do that on d/c. PT evaluated and feels pt is at baseline with mobility/transfers. Discussed possiblity that pt may become too weak for transfers and may be bedbound in the near future. Discussed HH/H support available and the potential for hiring support caregivers so could obtain respite/rest, sleep, run necessary errands. reports he has resources to hire help if he can find cgs who are willing to come to the home. Inst that care managers and hospice [employer]DER[employer] would assist in obtaining caregivers or cg agency to hire. states his has been in fierce denial re: her cancer/illness, ("she's a fighter"), up until recently. After her appointment with Dr Simmons and some time processing she had begun verbalizing knowledge that her "days were numbered". Case conferenced with , RN, CM and engineering production liaison after my conversation with . VO for DNR status per POLST obtained and entered. POLST left at room for Dr zee.
--- NOTE | 2020-02-23 15:35 | NUR ---
PT BACK TO BED, NO ACUTE CHANGE. HER CODE STATUS WAS CHANGED TO DNR. CALL LIGHT IN REACH.
--- NOTE | 2020-02-23 18:07 | NUR ---
PT SPEAKING ON THE PHONE PERIODICALLY, NO COMPLAINTS OR ACUTE CHANGES, CALL LIGHT IN REACH.
--- NOTE | 2020-02-23 19:30 | NUR ---
ASSUMED CARE APPROXIMATELY 1900; PT A&O; FLAT AFFECT; ANSWERS APPROPRIATELY; STATES SHE IS ANXIOUS TO BE DISCHARGED; EDUCATED ON USE OF CALL LIGHT; VSS; DENIES CHEST PAIN; O2 SATS >93 ON RA; TAKES PO MEDS CRUSHED IN PUDDING; STATES DUE TO CANCER IT IS DIFFICULT TO SWALLOW MEDS, BUT NO PROBLEMS NOTED W/ FOOD; NO SIGNS OF DISTRESS; CALL LIGHT IN REACH; BED IN LOWEST POSITION; WILL CONTINUE TO MONITOR CLOSELY.
[2020-02-24 04:22] LABS: BASOPHILS ABSOLUTE AUTO 0.03 K/mm3 (0.00-0.23); BASOPHILS PERCENT AUTO 1 % (0-2); EOSINOPHILS ABSOLUTE AUTO 0.14 K/mm3 (0.00-0.68); EOSINOPHILS PERCENT AUTO 4 % (0-6); Hematocrit 35.3 % (33.0-51.0); Hemoglobin 11.6 g/dL (11.5-16.0); IMMATURE GRAN ABSOLUTE AUTO 0.01 K/mm3 (0.00-0.10); IMMATURE GRAN PERCENT AUTO 0 % (0-1); LYMPHOCYTES ABSOLUTE AUTO 0.99 K/mm3 (0.84-5.20); LYMPHOCYTES PERCENT AUTO 28 % (21-46); MONOCYTES ABSOLUTE AUTO 0.35 K/mm3 (0.16-1.47); MONOCYTES PERCENT AUTO 10 % (4-13); Mean Corpuscular HGB 32.2 pg (26.0-34.0); Mean Corpuscular HGB Conc 32.9 g/dL (31.5-36.5); Mean Corpuscular Volume 98 fL (80-100); Mean Platelet Volume 9.4 fL (9.1-12.4); NEUTROPHILS ABSOLUTE AUTO 1.98 K/mm3 (1.96-9.15); NEUTROPHILS PERCENT AUTO 57 % (41-73); Platelet Count 202 K/mm3 (150-400); RDW Coefficient Variation 13.3 % (11.7-14.2); RDW Standard Deviation 47.9 fL (35.1-46.3)
[2020-02-24 04:42] LABS: International Normalized Ratio 1.22; Prothrombin Time Results 12.9 Sec (9.7-11.5)
[2020-02-24 04:59] LABS: Alanine Aminotransfer (ALT/SGP 212 U/L (12-78); Albumin, Blood 2.4 g/dL (3.4-5.0); Albumin/Globulin Ratio 0.7 (0.8-1.8); Alk Phos 425 U/L (50-136); Anion Gap 6 mmol/L (6-16); Aspartate Aminotrans (AST/SGOT 497 U/L (12-37); Bilirubin, Total 1.5 mg/dL (0.1-1.0); Blood Urea Nitrogen 10 mg/dL (8-24); Bun/Creatinine Ratio 20.2 (12.0-20.0); CO2, Blood 25 mmol/L (21-32); Calcium, Blood 8.1 mg/dL (8.5-10.1); Chloride, Blood 106 mmol/L (98-108); Globulin, Blood 3.5 g/dL (2.2-4.0); Glomerular Filtration Rate >60 (60-); Glucose, Blood 105 mg/dL (70-99); Potassium, Blood 3.8 mmol/L (3.5-5.5); Sodium, Blood 137 mmol/L (136-145); Total Protein, Blood 5.9 g/dL (6.4-8.2)
--- NOTE | 2020-02-24 06:20 | NUR ---
SHIFT SUMMARY PT A&O; TALKS IN A NEUTRAL FLAT TONE; SEEMS TO ENJOY TALKING TO STAFF; VSS; DENIES CHEST PAIN; O2 SATS >94 ON RA; SKIN DRY & FRAGILE; ATTENDS IN PLACE; CALLS APPROPRIATELY; NS KVO TO MAINTAIN MEDIPORT; CURRENTLY RESTING; NO SIGNS OF DISTRESS; CALL LIGHT IN REACH; BED IN LOWEST POSITION; WILL CONTINUE CLOSELY UNTIL HAND OFF TO DAY SHIFT RN.
--- NOTE | 2020-02-24 17:31 | NUR ---
PCU DAYSHIFT SUMMARY PATIENT ALERT AND ORIENTED TO SELF, LOCATION, SITUATION AND TIME/DATE. PATIENT MED NO TELE T/O SHIFT AND ON ROOM AIR. RESP E/U ON ROOM AIR. PATIENT HAD POOR APPETITE T/O DAY - PATIENT HAS DIFFICULTY AND PAIN WHILE SWALLOWING. PATIENT INCONTINENT T/O SHIFT - RED COCCYX SKIN NOTED. PATIENT STATES SHE SPEND MAJORITY OF HER TIME IN RECLINER AT HOME AND IS INCONTINENT AT BASELINE. HER HEALS ARE ALSO SOFT - MEPILEX DRESSING PLACED ON BILATERAL HEALS. VSS T/O SHIFT. NO ACUTE CHANGES. CALL LIGHT W/I REACH. WILL CONTINUE TO MONITOR AND REPORT TO NOC SHIFT RN.
--- NOTE | 2020-02-25 04:17 | NUR ---
UPDATE LAB NOTIFIED RN THAT PATIENT'S COVID LAB CAME BACK NEGATIVE.
[2020-02-25 06:44] LABS: International Normalized Ratio 1.23
--- NOTE | 2020-02-25 07:20 | NUR ---
SHIFT SUMMARY PATIENT PLEASENT AND COOPERATIVE THROUGHOUT THE NIGHT. PATIENT APPEARED TO SLEEP WELL LAST NIGHT. TKO RUNNING THROUGH ACCESSED [employer]. AT APPROX 0615 THIS MORNING PATIENT REPORTED THAT SHE HAS, "WHAT FEELS LIKE AIR STUCK UNDER MY BREAST BONE." PATIENT RATES DISCOMFORT A 2-3/10 AND STATES IT HAS BEEN GOING ON FOR APPROX 24 HOURS. PATIENT CURRENTLY APPEARS TO BE ASLEEP, CALL LIGHT WITHIN REACH. REPORT GIVEN TO 0NCOMING RN.
[2020-02-25 08:34] LABS: BASOPHILS ABSOLUTE AUTO 0.04 K/mm3 (0.00-0.23); BASOPHILS PERCENT AUTO 1 % (0-2); EOSINOPHILS ABSOLUTE AUTO 0.17 K/mm3 (0.00-0.68); EOSINOPHILS PERCENT AUTO 4 % (0-6); Hematocrit 32.9 % (33.0-51.0); IMMATURE GRAN PERCENT AUTO 0 % (0-1); LYMPHOCYTES ABSOLUTE AUTO 1.19 K/mm3 (0.84-5.20); LYMPHOCYTES PERCENT AUTO 30 % (21-46); MONOCYTES ABSOLUTE AUTO 0.31 K/mm3 (0.16-1.47); MONOCYTES PERCENT AUTO 8 % (4-13); Mean Corpuscular HGB 32.4 pg (26.0-34.0); Mean Corpuscular HGB Conc 33.4 g/dL (31.5-36.5); Mean Corpuscular Volume 97 fL (80-100); NEUTROPHILS PERCENT AUTO 56 % (41-73); Platelet Count 194 K/mm3 (150-400); RDW Coefficient Variation 13.8 % (11.7-14.2); RDW Standard Deviation 48.9 fL (35.1-46.3); White Blood Cell Count 3.91 K/mm3 (4.00-11.30)
--- NOTE | 2020-02-25 15:12 | NUR ---
RECIEVED TELEPHONE REPORT FROM MANAGER ICU. PER REPORT PT IS A Q2 TURN, DNR WITH PLANS TO GO HOME ON HOSPICE. PLAN IS TO GET THE PT STRONGER SO HER CAN CARE FOR HER AT HOME.
--- NOTE | 2020-02-25 15:26 | NUR ---
PCU DAYSHIFT TRANSFER SUMMARY PATIENT REMAINS ALERT AND ORIENTED TO SELF, LOCATION AND SITUATION. PATIENT DENIES ANY PAIN - EXCEPT WHEN SWALLOWING. MEDIPORT IN LEFT CHEST LEFT TKO. RESP E/U ON ROOM AIR. PATIENT MED NO TELE. PLAN FOR HOME WITH HOSPICE. REPORT TO JOSUÉ Baxter - MEDICAL FLOOR RN. PATIENT LEFT UNIT VIA WHEEL CHAIR.
--- NOTE | 2020-02-25 18:13 | NUR ---
SHIFT SUMMARY- PT ALERT AND ORIENTED. PT TRANSFERED TO MEDICAL FLOOR FROM PCU THIS EVENING AT 1530. PT HAS A MEDIPORT THAT IS ACCESSED AND IS CURRENTLY RUNNING IVF AT [facility]. PLAN IS FOR THE PT TO DISCHARGE HOME ON HOSPICE. PER REPORT FROM LANGUAGE ASSISTANT PLAN IS TO TRY TO GET HER STRONGER SO SHE CAN RETURN HOME FOR HER TO CARE FOR HER. UNCERTAIN HOW HER EVENTUAL DECLINE WILL BE MANAGED AT HOME IF HER REQUIRES HER TO BE A LITTLE STRONGER BEFORE DISCHARGE SO HE CAN MANAGE HER CARE. CALLER CONRADO MOSES FROM PALLIATIVE CARE AND POSED THIS QUESTION AND SHE WILL SPEAK TO DISCHARGE PLANNING TOMORROW AND REVIEW THE PT CHART.
--- NOTE | 2020-02-25 18:23 | NUR ---
pt transferred to medical floor. Review of discharge plan with nursing concerned may not be able to manage will review with youth care specialist.
--- NOTE | 2020-02-26 03:13 | NUR ---
SHIFT SUMMARY PATIENT HAD NO ACUTE CHANGES OBSERVED. AXO 3 AND ONE ASSIST TO BSC. TAKES MEDICATION CRUSHED IN APPLESAUCE. NS RUNNING AT TKO WITH MEDIPORT ACCESSED. DENIES PAIN, SOB, AND N/V. COOPERATIVE WITH CARE. CALL LIGHT IN REACH. BED IN LOWEST POSITION. WILL CONTINUE TO MONITOR UNTIL DAY SHIFT NURSE ASSUMES CARE.
[2020-02-26 04:18] LABS: International Normalized Ratio 1.09; Prothrombin Time Results 11.6 Sec (9.7-11.5)
[2020-02-26 04:27] LABS: Alanine Aminotransfer (ALT/SGP 290 U/L (12-78); Albumin, Blood 2.5 g/dL (3.4-5.0); Albumin/Globulin Ratio 0.7 (0.8-1.8); Alk Phos 802 U/L (50-136); Anion Gap 6 mmol/L (6-16); Aspartate Aminotrans (AST/SGOT 459 U/L (12-37); Bilirubin, Total 2.1 mg/dL (0.1-1.0); Blood Urea Nitrogen 7 mg/dL (8-24); Bun/Creatinine Ratio 16.3 (12.0-20.0); CO2, Blood 26 mmol/L (21-32); Calcium, Blood 7.9 mg/dL (8.5-10.1); Chloride, Blood 103 mmol/L (98-108); Creatinine, Blood 0.43 mg/dL (0.40-1.00); Globulin, Blood 3.8 g/dL (2.2-4.0); Glomerular Filtration Rate >60 (60-); Glucose, Blood 162 mg/dL (70-99); Potassium, Blood 3.2 mmol/L (3.5-5.5); Sodium, Blood 135 mmol/L (136-145); Total Protein, Blood 6.3 g/dL (6.4-8.2)
[2020-02-26] MEDS ORDERED: PRED5EL PO (12:41)
--- NOTE | 2020-02-26 14:22 | NUR ---
DISCHARGE HOME w HOSPICE. SYL MONAHAN LINKING MACHINE OPERATOR STATE ARRANGEMENTS FOR [facility] COORDINATED w PT'S WHO WILL BE IN TO PICK HER UP @ [address] CARPENTER IN TO SEE PT, PROVIDE D/C ORDERS. [facility] DEACCESSED/PROTOCOL. NEW SCRIPTS FAXED TO [facility]/PT REQUEST. BAND HEAD SAW OPERATOR PROVIDE BED BATH. OCCTHER ASSIST PT TO DRESS. PT IS A/O X4, PLEASANT AFFECT, STATE HAPPY TO HOME TODAY, FEELS READY. D/C INSTRUCT/NEW MEDS REVIEWED. RESTING QUIETLY, STATE COMFORT @ THIS TIME, WAITING FOR RIDE HOME.
--- NOTE | 2020-02-26 16:21 | NUR ---
arrive for transport home, w/c escort provided to er entrance, pt assisted into auto. she is pleasant/appreciative.
== END 2020-02-26 16:13 | disposition hospice, home (50) ==
LOC: ER 17:50 → PCU 17:51 → ER 20:32 → PCU 20:32 → MEDS 02-25 15:38 → ENPENDDIS 02-26 11:26 → MEDS 02-26 16:13
PROVIDERS: Emergency Medicine; Internal Medicine; ADMIT Internal Medicine
DX: R53.1 Weakness (principal); I21.4 Non-ST elevation (NSTEMI) myocardial infarction; C11.9 Malignant neoplasm of nasopharynx, unspecified; E87.6 Hypokalemia; E78.5 Hyperlipidemia, unspecified; I10 Essential (primary) hypertension; D64.9 Anemia, unspecified; R62.7 Adult failure to thrive; E46 Unspecified protein-calorie malnutrition; Z79.82 Long term (current) use of aspirin; Z79.899 Other long term (current) drug therapy; Z88.5 Allergy status to narcotic agent; Z88.0 Allergy status to penicillin; Z91.038 Other insect allergy status; Z86.73 Personal history of transient ischemic attack (TIA), and cerebral infarction without residual deficits; Z74.09 Other reduced mobility; Z68.1 Body mass index [BMI] 19.9 or less, adult
CPT/HCPCS: 0099U; 36415; 71045; 80053; 81001; 82550; 82553; 83605; 83880; 84484; 85025; 85027; 85610; 85730; 87040; 93005; 93010; 96365; 96366; 97110; 97162; 97165; 97535; 99285-25; A9270-GY; G0378; J1642; J1956; J7030; J7040; U0002